=== PATIENT | male | born 1965 | race Caucasian/White ===

== ENCOUNTER → 2018-10-10 | Outpatient (CLI) | payer OTHER ==
[~2018-10-10] MED LIST: ALLO300T PO; ASPI81TA45 PO; ATOR80TA PO; CARV25TA12 PO; FENO145T32 PO; LISI40TA PO; METF500T17 PO
== END | disposition home or self-care (01) ==
LOC: STAR 07:42
PROVIDERS: ATTEND Internal Medicine Gastroenterology
DX: Z02.9 Encounter for administrative examinations, unspecified (principal)

== ENCOUNTER 2018-10-17 05:51 | Day surgery (SDC) | payer OTHER ==
[~2018-10-17] VITALS: Ht 182.9 cm; Wt 154.6 kg
[2018-10-17] MEDS ORDERED: LACTATED RINGERS 1,000 ML IV SCH (06:37)
[2018-10-17 06:41] VITALS: BP 117/72
[2018-10-17] MEDS ORDERED: PROPOFOL 10 MG/ML, 20ML ONE (07:55)
[2018-10-17] MEDS ORDERED: PROPOFOL 10 MG/ML, 50ML ONE (07:55)
[2018-10-17] MEDS ORDERED: ALBUTEROL SULFATE 2.5 MG/3 ML NPPB PRN (09:00)
[2018-10-17] MEDS ORDERED: HYDROmorphone 2 MG/ML, 1ML IVPush PRN (09:00)
[2018-10-17] MEDS ORDERED: ACETAMINOPHEN 325 MG TABLET PO PRN (09:00)
[2018-10-17] MEDS ORDERED: OXYcodone 5 MG/5 ML ORAL.SOL UDC PO PRN (09:00)
[2018-10-17] MEDS ORDERED: DIAZEPAM 5 MG/ML, 2ML IVPush PRN (09:00)
[2018-10-17] MEDS ORDERED: MEPERIDINE/PF 25MG/0.5ML IVPush PRN (09:00)
[2018-10-17] MEDS ORDERED: KETOROLAC 30 MG/1 ML IV PRN (09:00)
[2018-10-17] MEDS ORDERED: FENTANYL PF 100 MCG/2ML IV PRN (09:00)
[2018-10-17] MEDS ORDERED: LABETALOL 5MG/ML, 20ML IV PRN (09:00)
[2018-10-17] MEDS ORDERED: hydrALAzine 20 MG/ML, 1ML IV PRN (09:00)
[2018-10-17] MEDS ORDERED: PROMETHAZINE 25 MG/ML, 1ML IV PRN (09:00)
== END 2018-10-17 10:10 | disposition home or self-care (01) ==
LOC: OUT 05:51
PROVIDERS: ATTEND Internal Medicine Gastroenterology
DX: Z09 Encounter for follow-up examination after completed treatment for conditions other than malignant neoplasm (principal); D12.2 Benign neoplasm of ascending colon; K63.5 Polyp of colon; I10 Essential (primary) hypertension; E66.01 Morbid (severe) obesity due to excess calories; Z86.010 Personal history of colon polyps; Z79.82 Long term (current) use of aspirin
CPT/HCPCS: 45385; 82962; 88305; J2704; J7120